=== PATIENT | female | born 1970 | race American Indian/Alaskan Native ===

== ENCOUNTER 2021-08-23 16:51 | Emergency (ER) | payer MEDICARE ==
[2021-08-23 20:30] VITALS: BP 149/87
--- NOTE | 2021-08-24 00:59 | Emergency Department Report ---
Eye Injury/Foreign Body - HPI Eye Location: Right Severity: Mild Tetanus Status: Up to Date Eye Symptoms: Eye Pain: Yes, Blurred Vision: No, Grinding/Hammering Metal: No, Used Eye Protection: No, Contact Lens Use: Yes, Recalls Injury: No, Photophobia: Yes Other History: 32-year-old female with asthma department complaining of a few day history of not progressing right pain which she believes is secondary to an allergy or a irritant possibly a contact. The pain and swelling was more so around the eye more so than the eyeball itself. She began having some swelling itching and pain to the region which improved but continues to [place] since the onset. She has been experiencing light sensitivity but no loss of vision or double vision. She has taken her contacts out for the last 2 days ED Review of Systems ROS: Stated complaint: LT EYE PAINFUL Other details as noted in HPI Comment: All other systems reviewed and negative ED Past Medical Hx - Medications Home Medications: Home Medications Medication Instructions Recorded Confirmed Last Taken Type Ketorolac Tromethamin 0.4%(Nf) 1 drop OP QID #1 bottle 08/24/21 Unknown Rx [Acular Ls 0.4% Ophth Madalyn] Tobramycin 0.3% [Tobrex] 1 drop OU Q8HR #1 bottle 08/24/21 Unknown Rx cephALEXin [Keflex] 500 mg PO Q6HR #40 capsule 08/24/21 Unknown Rx Eye Injury Exam - Exam General: Vital signs noted. No distress. Alert and acting appropriately. ED Course Vital Signs 08/23/21 19:51 Temperature 98.4 F Pulse Rate 87 Respiratory 18 Rate Blood Pressure 149/87 O2 Sat by Pulse 100 Oximetry Critical care attestation.: If time is entered above; I have spent that time in minutes in the direct care of this critically ill patient, excluding procedure time. ED Disposition Clinical Impression: Eye pain, Periorbital edema of right eye Disposition: 01 HOME / SELF CARE / HOMELESS Is pt being admited?: No Does the pt Need Aspirin: No Condition: Stable Instructions: Photophobia, Bacterial Conjunctivitis, Adult Prescriptions: Ketorolac Tromethamin 0.4%(Nf) [Acular Ls 0.4% Ophth Madalyn] 1 drop OP QID #1 bottle cephALEXin [Keflex] 500 mg PO Q6HR #40 capsule Tobramycin 0.3% [Tobrex] 1 drop OU Q8HR #1 bottle Referrals: [facility] [Provider Group] - 3-5 Days [facility] [Provider Group] - 3-5 Days ED Eye Prob EXAM - General General appearance: alert Limitations: No Limitations Head exam: Positive: atraumatic Eyelids: Erythema: Left, Swelling: Left Pupils: Regular, Round: Bilateral, Reactive: Bilateral Sclera: Normal Inspection: Bilateral Anterior chamber: Normal Inspection: Bilateral ENT exam: Positive: normal exam Neck exam: Positive: normal inspection Respiratory exam: Positive: normal lung sounds bilaterally Cardiovascular Exam: Positive: regular rate GI/Abdominal exam: Positive: soft
== END 2021-08-24 01:15 | disposition home or self-care (01) ==
LOC: ED 16:51
DX: H57.12 Ocular pain, left eye (principal); R60.9 Edema, unspecified; H02.843 Edema of right eye, unspecified eyelid
CPT/HCPCS: 99282